=== PATIENT | female | born 1970 | race Caucasian/White ===

== ENCOUNTER → 2016-05-21 | Outpatient (CLI) | payer MEDICARE, OTHER ==
[~2016-05-21] MED LIST: ALLE60TA PO; ARIP1TAB11 PO; ARIP1TAB12 PO; BUPR100CR PO; BUPR150CR PO; BUTO10SO NASAL; CYMB60CA PO; DULO1CAP3 PO; FLUT1SPR9 EACH NARE; HYDR25TA5 PO; KETO60IN6 IM; LAMI200T PO; LAMO100 PO; LINA290C PO; MAXA5TAB2 PO; NEXI20CA PO; OXYC1TAB36 PO; OXYM15TA PO; TOPA100T11 PO; WELLTAB39 PO; XANA1TAB2 PO; ZYRT10CA PO; [UNRECOGNIZED DRUG - CODE] PO
[2016-05-21 13:19] LABS: MEAN CELL VOLUME 86.6 FL (80.0-100.0); MEAN CORPUSCULAR HGB CONC 34.6 % (32.0-36.0); PLATELET COUNT 332 TH/MM3 (150-450); RED BLOOD COUNT 4.96 MIL/MM3 (4.00-5.30); REVIEW FLAG FINAL; WHITE BLOOD COUNT 11.6 TH/MM3 (4.0-11.0)
== END ==
LOC: CPRE 12:36
PROVIDERS: ATTEND Specialist
DX: Z01.812 Encounter for preprocedural laboratory examination (principal); J32.9 Chronic sinusitis, unspecified
CPT/HCPCS: 36415; 85027

== ENCOUNTER → 2016-05-23 | Day surgery (SDC) | payer MEDICARE, OTHER ==
--- NOTE | 2016-05-22 18:56 | MH ---
cc: MARSHALL ACOSTA DATE OF ADMISSION: 05/23/2016 ADMITTING DIAGNOSIS: HISTORY AND PHYSICAL The patient is a 45 year-old female with chronic nasal obstruction and chronic sinusitis for septal reconstruction turbinectomy, bilateral endoscopic sinusotomy. PAST MEDICAL HISTORY Unremarkable. PAST SURGICAL HISTORY Unremarkable REVIEW OF SYSTEMS, FAMILY HISTORY AND SOCIAL HISTORY Unremarkable. PHYSICAL EXAMINATION Well-appearing patient, no acute distress noted. HEENT: Exam reveals septal deviation, turbinate hypertrophy, copious clear rhinorrhea. Lungs: Clear. Heart: Regular rate and rhythm. Abdomen: Soft and nontender. Extremities: Without cyanosis, clubbing or edema. Neurologic: Alert, oriented, nonfocal neurologic exam. IMPRESSION: Patient with nasal obstruction and chronic sinusitis, for nasal sinus surgery. Patient instructed on the method of surgery and possible complications, which include anesthetic complications, cardiac difficulty, pulmonary difficulty, stroke, coma or even . Surgical complications include bleeding, infection, risk of injury to orbit including blindness and diplopia, risk of injury to brain including CSF leak, meningitis, brain abscess or even . The patient appeared to agree, accept, and understand the above-mentioned risks and benefits. In addition, no guarantees or warranties regarding outcome were given. Will therefore proceed with surgery. Marshall Acosta MD [facility]/RADHA /5:55 PM /6:52 PM
[~2016-05-23] VITALS: Ht 170.2 cm; Wt 97.8 kg
[~2016-05-23] MED LIST changes: +*morphine SULFATE 8 MG/ML PERIprocedure ONLY ONE; +ACETAMINOPHEN 1000 MG/100 ML VIAL IV ONE; +ACETAMINOPHEN/HYDROcodone 325 MG/7.5 MG TAB PO PRN; -ARIP1TAB11 PO; -BUPR100CR PO; -BUPR150CR PO; +DO NOT ADM ANY ANTICOAGULANT DRUGS XX PRN; -DULO1CAP3 PO; +EPINEPHrine HCL (1:1000) 30 MG/30 ML VIAL ONE; +EPINEPHrine HCL (1:1000) 30 MG/30 ML VIAL OTHER ONE; +INSULIN HUMAN REGULAR 1,000 UNITS/10 ML VIAL SQ PRN; +LACTATED RINGER'S 1000 ML IV SCH; -LAMO100 PO; +LIDOCAINE 1%/EPINEPHrine 1:100,000 SOLN 30 ML VIAL INFIL ONE; +LIDOCAINE 1%/EPINEPHrine 1:100,000 SOLN 30 ML VIAL ONE; +METOPROLOL TARTRATE 25 MG TAB PO PRN; +MIDAZOLAM HCL 2 MG/2 ML VIAL ONE; +MORPHINE SULFATE 4 MG/ML INJ IV PRN; +ONDANSETRON HCL 4 MG/2 ML VIAL IV PUSH ONE; +ONDANSETRON HCL 4 MG/2 ML VIAL IV PUSH PRN; +PROPOFOL 200 MG/20 ML AMP IV ONE; +SODIUM CHLORID 0.9% 500 ML IV SCH; +fentaNYL CITRATE 250 MCG/5 ML AMP ONE
[2016-05-23 07:00] VITALS: BP 118/77; PULSE 83; RESP 18; TEMP 97.4; O2SAT 98
[2016-05-23 12:40] VITALS: BP 116/75; PULSE 87; RESP 18; TEMP 98.7; O2SAT 98
--- NOTE | 2016-05-24 09:00 | MP ---
cc: MARSHALL ACOSTA DATE OF SURGERY 05/23/2016 PREOPERATIVE DIAGNOSIS Nasal obstruction, chronic sinusitis PROCEDURE Open septal reconstruction, left and right endoscopic frontal sinusotomy, left and right endoscopic anterior/posterior ethmoidectomy, left and right endoscopic maxillary antrostomy with removal of tissue, left and right endoscopic sphenoidotomy, left and right inferior turbinectomy, submucous resection. SURGEON Dr. Acosta ESTIMATED BLOOD LOSS Minimal COMPLICATIONS No complication. OPERATION FOLLOWS Prepped and draped in the usual fashion. 1% Xylocaine, 1:100,000 epinephrine injected into the nasal septum, inferior turbinate middle meatus and superior meatus bilaterally. 1:1000 adrenaline soaked pledgets were placed. Under endoscopic visualization, attention was turned to the right middle meatus whereby the balloon Sinuplasty apparatus was placed in the middle meatus. The guide wire threaded into the right frontal sinus confirmed by light and the balloon threaded and dilation occurred 10 atmospheres x2. In a similar fashion, left frontal sinus was entered and a balloon Sinuplasty performed. The natural antrostomy identified and enlarged on the left side with the balloon Sinuplasty apparatus on the right side under endoscopic visualization and then the sphenoid recess was opened on right side as well. At this point, the microdebrider was used to remove the uncinate process. The frontal sinus recess dissection performed with microdebrider under endoscopic visualization. The natural antrostomy identified already enlarged with the balloon, enlarged further and minimal polypoid tissue removed from it on the right side. Anterior/posterior ethmoidectomy performed with microdebrider. In a similar fashion on the opposite side, anterior/posterior ethmoidectomy performed. Frontal sinus recess dissection, as well as natural antrostomy enlarged and polypoid tissue removed. Sphenoid recess was further enlarged bilaterally with microdebrider under endoscopic visualization. Mucoperichondrial incision made. Left side mucoperichondrial flap elevated. A significant amount of bone and cartilage removed to improve nasal airway. Mucoperichondrial flap reapproximated. Once this was achieved, attention turned to removing bone and cartilage improving nasal airway and reducing nasal fracture. A portion of the inferior turbinate removed submucosally with the Coblator probe. Multiple insertions made under direct and endoscopic visualization significantly reducing the submucosal bulk of the inferior turbinate bilaterally. An intercartilaginous incision was then made on the right side and a retrograde dissection of the lower lateral cartilage and the upper lateral cartilage both removed to some degree to improve the dome on the right side. In a similar fashion, this was performed on the left side with an intercartilaginous incision, resection of lower lateral and upper lateral cartilage performed, the nose with suction, the nose was taped. The patient tolerated procedure well. MD PETER Corbett/NINA /9:27 AM /8:43 AM
== END | disposition home or self-care (01) ==
LOC: HSDC 06:19
PROVIDERS: ATTEND Specialist
DX: J32.9 Chronic sinusitis, unspecified (principal); J34.2 Deviated nasal septum; J34.3 Hypertrophy of nasal turbinates
CPT/HCPCS: 00160; 30140; 30520; 31255; 31267; 31276; 31287; J0131; J0171; J2250; J2270; J2405; J3010; J7120

== ENCOUNTER 2016-11-03 13:20 | Emergency (ER) | payer MEDICARE, OTHER ==
[~2016-11-03] VITALS: Ht 171.4 cm; Wt 94.0 kg
[~2016-11-03 13:20] MED LIST changes: -*morphine SULFATE 8 MG/ML PERIprocedure ONLY ONE; -ACETAMINOPHEN 1000 MG/100 ML VIAL IV ONE; -ACETAMINOPHEN/HYDROcodone 325 MG/7.5 MG TAB PO PRN; -DO NOT ADM ANY ANTICOAGULANT DRUGS XX PRN; -EPINEPHrine HCL (1:1000) 30 MG/30 ML VIAL ONE; -EPINEPHrine HCL (1:1000) 30 MG/30 ML VIAL OTHER ONE; -INSULIN HUMAN REGULAR 1,000 UNITS/10 ML VIAL SQ PRN; -LACTATED RINGER'S 1000 ML IV SCH; -LIDOCAINE 1%/EPINEPHrine 1:100,000 SOLN 30 ML VIAL INFIL ONE; -LIDOCAINE 1%/EPINEPHrine 1:100,000 SOLN 30 ML VIAL ONE; -METOPROLOL TARTRATE 25 MG TAB PO PRN; -MIDAZOLAM HCL 2 MG/2 ML VIAL ONE; -MORPHINE SULFATE 4 MG/ML INJ IV PRN; -ONDANSETRON HCL 4 MG/2 ML VIAL IV PUSH ONE; -ONDANSETRON HCL 4 MG/2 ML VIAL IV PUSH PRN; -PROPOFOL 200 MG/20 ML AMP IV ONE; -SODIUM CHLORID 0.9% 500 ML IV SCH; -ZYRT10CA PO; -[UNRECOGNIZED DRUG - CODE] PO; -fentaNYL CITRATE 250 MCG/5 ML AMP ONE
[2016-11-03 13:22] VITALS: BP 140/97; PULSE 93; RESP 20; TEMP 97.6; O2SAT 100
[2016-11-03] MEDS ORDERED: SODIUM CHLOR 0.9% 1000 ML INJ 1,000 ML IV SCH (13:54)
--- NOTE | 2016-11-03 13:55 | PD ---
HPI Chief Complaint: Abdominal Pain Time Seen by Provider: 13:55 Travel History International Travel<30 days: No Contact w/Intl Traveler<30days: No Traveled to known affect area: No History of Present Illness HPI 46-year-old female with psychiatric history, chronic back pain, fibromyalgia, IBS, migraines, presents to the emergency department for evaluation of abdominal pain worsening over the last 2-3 weeks. Pain is generalized but primarily right upper quadrant. She cannot think of any exacerbating or alleviating factors. It is constant, sometimes sharp. She has had nausea and dry heaves but no vomiting. Bowel movements have become loose and are yellow in color. 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 Denies any urinary symptoms. Denies any chest pain or tightness. She has no other symptoms to report. PFSH Past Medical History Cancer: No Cardiovascular Problems: Yes Diabetes: No Endocrine: No Genitourinary: No Headaches: Yes Hepatitis: No Hiatal Hernia: No Immune Disorder: Yes (fibromyalgia) Musculoskeletal: Yes (neck and back pain ) Neurologic: Yes (migraines) Psychiatric: Yes Reproductive: No Respiratory: Yes (sleep apnea, ) Migraines: Yes Seizures: No Sickle Cell Disease: No Thyroid Disease: No Past Surgical History Abdominal Surgery: Yes (hernia repair) AICD: No Ear Surgery: Yes (l ear) Gynecologic Surgery: Yes (hysterectomy. tumor removed r ovary, ablation 1999) Hysterectomy: Yes Joint Replacement: No Pacemaker: No Social History Tobacco Use: Yes Substance Use: No Allergies-Medications (Allergen,Severity, Reaction): Coded Allergies: No Known Allergies (Unverified , 11/03/16) Reported Meds & Prescriptions Reported Meds & Active Scripts Active Flonase Allergy Relief Children Nasal [place] (Fluticasone Nasal [place]) 50 Mcg/ Act [place] 2 [place] EACH NARE DAILY 50 mcg/spray Nexium (Esomeprazole DR) 20 Mg Capdr 20 Mg PO DAILY Hydrochlorothiazide 25 Mg Tab 25 Mg PO DAILY Linzess (Linaclotide) 290 Mcg Cap 290 Mcg PO DAILY Topamax (Topiramate) 100 Mg Tab 100 Mg PO Q12HR 14 Days Reported Flexeril (Cyclobenzaprine HCl) 10 Mg Tab 10 Mg PO TID PRN Oxymorphone (Oxymorphone HCl) 10 Mg Tab 15 Mg PO BID PRN Wellbutrin Xl 24 HR (Bupropion HCl) 300 Mg Tab 300 Mg PO DAILY Oxycodone-Acetaminophen 10-325 mg Tab 1 Tab PO TID PRN Ketorolac Inj (Ketorolac Tromethamine) 60 Mg/2 Ml Inj 60 Mg IM ONCE Butorphanol Nasal [place] (Butorphanol Tartrate) 10 Mg/Ml Soln 1 [place] NASAL DAILY PRN in one nostril (1 mg). If pain not reliefed in 60-90 minutes, a 1 mg repeat dose may be given. May repeat this in 3-4 hrs if needed. Xanax (Alprazolam) 1 Mg Tab 1 Mg PO QID PRN Cymbalta DR (Duloxetine HCl) 60 Mg Capdr 60 Mg PO BID Lamictal (Lamotrigine) 200 Mg Tab 200 Mg PO DAILY Review of Systems Except as stated in HPI: all other systems reviewed are Neg Physical Exam Narrative GENERAL: Well-nourished female patient, sitting up in bed in no acute distress SKIN: Focused skin assessment warm/dry. HEAD: Atraumatic. Normocephalic. EYES: Pupils equal and round. No scleral icterus. No injection or drainage. ENT: No nasal bleeding or discharge. Mucous membranes pink and moist. NECK: Trachea midline. No JVD. CARDIOVASCULAR: Elevated rate and rhythm. No murmur appreciated. RESPIRATORY: No accessory muscle use. Clear to auscultation. Breath sounds equal bilaterally. GASTROINTESTINAL: Abdomen soft, nondistended. Generalized tenderness to palpation with marked tenderness in the right upper quadrant and epigastric area. Hepatic and splenic margins not palpable. MUSCULOSKELETAL: No obvious deformities. No clubbing. No cyanosis. No edema. NEUROLOGICAL: Awake and alert. No obvious cranial nerve deficits. Motor grossly within normal limits. Normal speech. PSYCHIATRIC: Anxious. Data Data Last Documented VS Vital Signs Date Time Temp Pulse Resp B/P Pulse Ox O2 Delivery O2 Flow Rate FiO2 11/03/16 13:58 100 11/03/16 13:22 97.6 93 20 140/97 Room Air Orders Complete Blood Count With Diff (11/03/16 13:54) Comprehensive Metabolic Panel (11/03/16 13:54) Lipase (11/03/16 13:54) Prothrombin Time / Inr (Pt) (11/03/16 13:54) Act Partial Throm Time (Ptt) (11/03/16 13:54) Urinalysis - C+S If Indicated (11/03/16 13:54) Us Abdomen Gallbladder (11/03/16 ) Iv Access Insert/Monitor (11/03/16 13:54) Ecg Monitoring (11/03/16 13:54) Oximetry (11/03/16 13:54) Sodium Chlor 0.9% 1000 Ml Inj (Ns 1000 M (11/03/16 13:54) Sodium Chloride 0.9% Flush (Ns Flush) (11/03/16 14:00) Electrocardiogram (11/03/16 13:54) Ketorolac Inj (Toradol Inj) (11/03/16 14:00) Ondansetron Inj (Zofran Inj) (11/03/16 14:30) Morphine Inj (Morphine Inj) (11/03/16 14:45) Morphine Inj (Morphine Inj) (11/03/16 16:00) Labs Laboratory Tests Test 11/03/16 11/03/16 14:05 14:25 White Blood Count 11.5 TH/MM3 Red Blood Count 5.02 MIL/MM3 Hemoglobin 14.8 GM/DL Hematocrit 44.7 % Mean Corpuscular Volume 89.1 FL Mean Corpuscular Hemoglobin 29.6 PG Mean Corpuscular Hemoglobin 33.2 % Concent Red Cell Distribution Width 14.3 % Platelet Count 317 TH/MM3 Mean Platelet Volume 8.2 FL Neutrophils (%) (Auto) 79.1 % Lymphocytes (%) (Auto) 12.9 % Monocytes (%) (Auto) 6.2 % Eosinophils (%) (Auto) 1.4 % Basophils (%) (Auto) 0.4 % Neutrophils # (Auto) 9.1 TH/MM3 Lymphocytes # (Auto) 1.5 TH/MM3 Monocytes # (Auto) 0.7 TH/MM3 Eosinophils # (Auto) 0.2 TH/MM3 Basophils # (Auto) 0.0 TH/MM3 CBC Comment DIFF FINAL Differential Comment Prothrombin Time 10.8 SEC Prothromb Time International 1.0 RATIO Ratio Activated Partial 27.6 SEC Thromboplast Time Sodium Level 139 MEQ/L Potassium Level 3.3 MEQ/L Chloride Level 108 MEQ/L Carbon Dioxide Level 21.8 MEQ/L Anion Gap 9 MEQ/L Blood Urea Nitrogen 10 MG/DL Creatinine 1.01 MG/DL Estimat Glomerular Filtration 59 ML/MIN Rate Random Glucose 98 MG/DL Calcium Level 8.7 MG/DL Total Bilirubin 0.4 MG/DL Aspartate Amino Transf 13 U/L (AST/SGOT) Alanine Aminotransferase 24 U/L (ALT/SGPT) Alkaline Phosphatase 89 U/L Total Protein 7.9 GM/DL Albumin 3.6 GM/DL Lipase 78 U/L Urine Color LIGHT-YELLOW Urine Turbidity CLEAR Urine pH 5.0 Urine Specific [place] 1.010 Urine Protein NEG mg/dL Urine Glucose (UA) NEG mg/dL Urine Ketones NEG mg/dL Urine Occult Blood NEG Urine Nitrite NEG Urine Bilirubin NEG Urine Urobilinogen LESS THAN 2.0 MG/DL Urine Leukocyte Esterase NEG Urine WBC LESS THAN 1 /hpf Urine Squamous Epithelial <1 /hpf Cells Urine Mucus FEW /lpf Microscopic Urinalysis Comment CULT NOT INDICATED MDM Medical Decision Making Medical Screen Exam Complete: Yes Emergency Medical Condition: Yes Medical Record Reviewed: Yes Differential Diagnosis biliary colic versus cholecystitis versus cholelithiasis versus pancreatitis versus indigestion versus gastroenteritis versus exacerbation of chronic pain versus adhesions versus obstruction Narrative Course 46 year-old female presents to department for evaluation of abdominal pain. Patient's pain is generalized and more tender in the epigastrium and right upper quadrant. Vital signs are stable. Lab work is without acute concern. Ultrasound of the gallbladder is complete and unremarkable. Patient has been treated for pain. And nausea. She states that this did help improve her symptoms. She is just frustrated due to the ongoing symptoms and "being sick forever." I have encouraged follow-up with her primary care provider and gastroenterology evaluation as well. She is to continue her normal medications. I discussed the patient my attending who is also assessed the patient. Patient was discharged home at this time. Laboratory Tests Test 11/03/16 11/03/16 14:05 14:25 White Blood Count 11.5 TH/MM3 Red Blood Count 5.02 MIL/MM3 Hemoglobin 14.8 GM/DL Hematocrit 44.7 % Mean Corpuscular Volume 89.1 FL Mean Corpuscular Hemoglobin 29.6 PG Mean Corpuscular Hemoglobin 33.2 % Concent Red Cell Distribution Width 14.3 % Platelet Count 317 TH/MM3 Mean Platelet Volume 8.2 FL Neutrophils (%) (Auto) 79.1 % Lymphocytes (%) (Auto) 12.9 % Monocytes (%) (Auto) 6.2 % Eosinophils (%) (Auto) 1.4 % Basophils (%) (Auto) 0.4 % Neutrophils # (Auto) 9.1 TH/MM3 Lymphocytes # (Auto) 1.5 TH/MM3 Monocytes # (Auto) 0.7 TH/MM3 Eosinophils # (Auto) 0.2 TH/MM3 Basophils # (Auto) 0.0 TH/MM3 CBC Comment DIFF FINAL Differential Comment Prothrombin Time 10.8 SEC Prothromb Time International 1.0 RATIO Ratio Activated Partial 27.6 SEC Thromboplast Time Sodium Level 139 MEQ/L Potassium Level 3.3 MEQ/L Chloride Level 108 MEQ/L Carbon Dioxide Level 21.8 MEQ/L Anion Gap 9 MEQ/L Blood Urea Nitrogen 10 MG/DL Creatinine 1.01 MG/DL Estimat Glomerular Filtration 59 ML/MIN Rate Random Glucose 98 MG/DL Calcium Level 8.7 MG/DL Total Bilirubin 0.4 MG/DL Aspartate Amino Transf 13 U/L (AST/SGOT) Alanine Aminotransferase 24 U/L (ALT/SGPT) Alkaline Phosphatase 89 U/L Total Protein 7.9 GM/DL Albumin 3.6 GM/DL Lipase 78 U/L Urine Color LIGHT-YELLOW Urine Turbidity CLEAR Urine pH 5.0 Urine Specific [place] 1.010 Urine Protein NEG mg/dL Urine Glucose (UA) NEG mg/dL Urine Ketones NEG mg/dL Urine Occult Blood NEG Urine Nitrite NEG Urine Bilirubin NEG Urine Urobilinogen LESS THAN 2.0 MG/DL Urine Leukocyte Esterase NEG Urine WBC LESS THAN 1 /hpf Urine Squamous Epithelial <1 /hpf Cells Urine Mucus FEW /lpf Microscopic Urinalysis Comment CULT NOT INDICATED Last Impressions Gall Bladder Ultrasound 11/03/16 0000 Signed Impressions: Service Date/Time: Thursday, November 03, 2016 15:03 - CONCLUSION: No acute disease. Barrie Ochoa MD Diagnosis Primary Impression: Abdominal pain Qualified Code: R10.84 - Generalized abdominal pain Additional Impressions: Joint pain Qualified Code: M25.551 - Pain of both hip joints Chronic nausea Fibromyalgia Back pain Qualified Code: M54.5 - Chronic bilateral low back pain without sciatica Referrals: Skin Care Specialist Primary Care Physician Patient Instructions: Abdominal Pain (ED), Fibromyalgia (ED), General Instructions Additional Instructions: Continue medication as prescribed Elevated primary care provider Gastroenterology evaluation maybe warranted Return immediately with any acute worsening symptoms. Med/Other Pt SpecificInfo: Prescription(s) given Disposition: 01 DISCHARGE HOME Condition: Stable Susie Todd Nov 03, 2016 13:55
[2016-11-03] MEDS ORDERED: OXYMTAB2 PO (13:56)
[2016-11-03] MEDS ORDERED: CYCL1TAB29 PO (13:56)
[2016-11-03 13:58] VITALS: O2SAT 100
[2016-11-03] MEDS ORDERED: SODIUM CHLORIDE 0.9% FLUSH 10 ML FLUSH IV FLUSH PRN (14:00)
[2016-11-03] MEDS ORDERED: KETOROLAC TROMETHAMINE 30 MG/ML (IVP) VIAL IVP ONE (14:00)
[2016-11-03] MEDS ORDERED: ONDANSETRON HCL 4 MG/2 ML VIAL IV PUSH ONE (14:30)
[2016-11-03 14:33] LABS: AUTOMATED NEUTROPHIL # 9.1 TH/MM3 (1.8-7.7); BASOPHIL % 0.4 % (0.0-2.0); EOSINOPHIL # 0.2 TH/MM3 (0-0.4); EOSINOPHIL % 1.4 % (0.0-4.0); HEMATOCRIT 44.7 % (35.0-46.0); HEMO FLAGS DIFF FINAL; LYMPH % 12.9 % (9.0-44.0); LYMPHOCYTE # 1.5 TH/MM3 (1.0-4.8); MEAN CELL VOLUME 89.1 FL (80.0-100.0); MEAN CORPUSCULAR HEMOGLOBIN 29.6 PG (27.0-34.0); MEAN CORPUSCULAR HGB CONC 33.2 % (32.0-36.0); MONO % 6.2 % (0.0-8.0); NEUT % 79.1 % (16.0-70.0); PLATELET COUNT 317 TH/MM3 (150-450); RED BLOOD COUNT 5.02 MIL/MM3 (4.00-5.30); RED CELL DISTRIBUTION WIDTH 14.3 % (11.6-17.2); WHITE BLOOD COUNT 11.5 TH/MM3 (4.0-11.0)
[2016-11-03] MEDS ORDERED: MORPHINE SULFATE 4 MG/ML INJ IV PUSH ONE ×2 (14:45→16:00)
[2016-11-03 14:48] LABS: ALKALINE PHOSPHATASE 89 U/L (45-117); TOTAL BILIRUBIN ADULT 0.4 MG/DL (0.2-1.0)
[2016-11-03 15:02] LABS: APTT (PATIENT) 27.6 SEC (24.3-30.1); PROTHROMBIN TIME - PATIENT 10.8 SEC (9.8-11.6)
[2016-11-03 15:05] LABS: BLOOD, URINE NEG (NEG); COMMENT (UR) CULT NOT INDICATED; CULTURE IF INDICATED CULT NOT INDICATED; GLUCOSE,URINE NEG (NEG); KETONE, URINE NEG (NEG); MUCUS URINE FEW /lpf (OCC); NITRITE,URINE NEG (NEG); SQUAMOUS EPITHELIAL CELL URINE <1 /hpf (0-5); URINE COLOR LIGHT-YELLOW (YELLW/STRAW)
[2016-11-03 15:10] LABS: ALT (GPT) 24 U/L (10-53); ANION GAP 9 MEQ/L (5-15); AST (GOT) 13 U/L (15-37); BICARBONATE 21.8 MEQ/L (21.0-32.0); BLOOD UREA NITROGEN 10 MG/DL (7-18); CHLORIDE 108 MEQ/L (98-107); GLOMERULAR FILTRATION RATE 59 ML/MIN (>89); POTASSIUM 3.3 MEQ/L (3.5-5.1); SODIUM (NA) 139 MEQ/L (136-145)
--- NOTE | 2016-11-03 16:08 | RADRPT ---
EXAM DATE/TIME: 11/03/2016 15:03 [place] COMPARISON: No previous studies available for comparison. INDICATIONS : Right upper quadrant pain. MEDICAL HISTORY : Headache. Migraine. Sleep apnea. Fibromyalgia. SURGICAL HISTORY : Hysterectomy. Ear surgery. Hernia repair. Tumor removal, right ovary. Ablation. Bilateral knee scope. ENCOUNTER: Initial ACUITY: 4-6 days PAIN SCORE: 8/10 LOCATION: Right upper quadrant MEASUREMENTS: LIVER: 15.6 cm length COMMON DUCT: 4 mm RIGHT KIDNEY: 10.3 x 4.9 x 4.5 cm FINDINGS: LIVER: Normal echotexture without focal lesion or ductal dilatation. COMMON DUCT: No intraluminal mass or stone visualized. GALLBLADDER: Contains no stones, demonstrates no wall thickening or pericholecystic fluid. PANCREAS: The visualized portions are within normal limits. RIGHT KIDNEY: No evidence of hydronephrosis, stone, or mass. CONCLUSION: No acute disease. Barrie Ochoa MD on November 03, 2016 at 16:07 Board Certified Radiologist. This report was verified electronically.
--- NOTE | 2016-11-03 16:13 | PD ---
Data Data Last Documented VS Vital Signs Date Time Temp Pulse Resp B/P Pulse Ox O2 Delivery O2 Flow Rate FiO2 11/03/16 13:58 100 11/03/16 13:22 97.6 93 20 140/97 Room Air Orders Complete Blood Count With Diff (11/03/16 13:54) Comprehensive Metabolic Panel (11/03/16 13:54) Lipase (11/03/16 13:54) Prothrombin Time / Inr (Pt) (11/03/16 13:54) Act Partial Throm Time (Ptt) (11/03/16 13:54) Urinalysis - C+S If Indicated (11/03/16 13:54) Us Abdomen Gallbladder (11/03/16 ) Iv Access Insert/Monitor (11/03/16 13:54) Ecg Monitoring (11/03/16 13:54) Oximetry (11/03/16 13:54) Sodium Chlor 0.9% 1000 Ml Inj (Ns 1000 M (11/03/16 13:54) Sodium Chloride 0.9% Flush (Ns Flush) (11/03/16 14:00) Electrocardiogram (11/03/16 13:54) Ketorolac Inj (Toradol Inj) (11/03/16 14:00) Ondansetron Inj (Zofran Inj) (11/03/16 14:30) Morphine Inj (Morphine Inj) (11/03/16 14:45) Morphine Inj (Morphine Inj) (11/03/16 16:00) Labs Laboratory Tests Test 11/03/16 11/03/16 14:05 14:25 White Blood Count 11.5 TH/MM3 Red Blood Count 5.02 MIL/MM3 Hemoglobin 14.8 GM/DL Hematocrit 44.7 % Mean Corpuscular Volume 89.1 FL Mean Corpuscular Hemoglobin 29.6 PG Mean Corpuscular Hemoglobin 33.2 % Concent Red Cell Distribution Width 14.3 % Platelet Count 317 TH/MM3 Mean Platelet Volume 8.2 FL Neutrophils (%) (Auto) 79.1 % Lymphocytes (%) (Auto) 12.9 % Monocytes (%) (Auto) 6.2 % Eosinophils (%) (Auto) 1.4 % Basophils (%) (Auto) 0.4 % Neutrophils # (Auto) 9.1 TH/MM3 Lymphocytes # (Auto) 1.5 TH/MM3 Monocytes # (Auto) 0.7 TH/MM3 Eosinophils # (Auto) 0.2 TH/MM3 Basophils # (Auto) 0.0 TH/MM3 CBC Comment DIFF FINAL Differential Comment Prothrombin Time 10.8 SEC Prothromb Time International 1.0 RATIO Ratio Activated Partial 27.6 SEC Thromboplast Time Sodium Level 139 MEQ/L Potassium Level 3.3 MEQ/L Chloride Level 108 MEQ/L Carbon Dioxide Level 21.8 MEQ/L Anion Gap 9 MEQ/L Blood Urea Nitrogen 10 MG/DL Creatinine 1.01 MG/DL Estimat Glomerular Filtration 59 ML/MIN Rate Random Glucose 98 MG/DL Calcium Level 8.7 MG/DL Total Bilirubin 0.4 MG/DL Aspartate Amino Transf 13 U/L (AST/SGOT) Alanine Aminotransferase 24 U/L (ALT/SGPT) Alkaline Phosphatase 89 U/L Total Protein 7.9 GM/DL Albumin 3.6 GM/DL Lipase 78 U/L Urine Color LIGHT-YELLOW Urine Turbidity CLEAR Urine pH 5.0 Urine Specific [place] 1.010 Urine Protein NEG mg/dL Urine Glucose (UA) NEG mg/dL Urine Ketones NEG mg/dL Urine Occult Blood NEG Urine Nitrite NEG Urine Bilirubin NEG Urine Urobilinogen LESS THAN 2.0 MG/DL Urine Leukocyte Esterase NEG Urine WBC LESS THAN 1 /hpf Urine Squamous Epithelial <1 /hpf Cells Urine Mucus FEW /lpf Microscopic Urinalysis Comment CULT NOT INDICATED MDM Supervised Visit with NAOMY: Yes Narrative Course The history, exam, and medical decision-making in the associated mid-level provider note were completed with my assistance. I reviewed and agree with the findings presented. I attest that I had a [id number] encounter with the patient on the same day, and personally performed and documented my assessment and findings in the medical record. *My assessment and Findings: 46-year-old woman with abdominal pain radiating diffusely to the back and throughout her whole body, concentrated in the right upper quadrant. She looks generally well. She has some abdominal tenderness. It's not impressive. She has history of fibromyalgia complains of pain in her back and ultrasounds unremarkable. Recommend outpatient follow-up. Condition: Stable Edy Cai MD Nov 03, 2016 16:13
[2016-11-03 16:30] VITALS: BP 145/75; PULSE 78; RESP 16; O2SAT 98
--- NOTE | 2016-11-04 16:23 | EKG ---
Date Performed: 11/03/2016 Time Performed: 14:34:14 PTAGE: 46 years EKG: Sinus rhythm NORMAL ECG INTERPRETATION BASED ON A DEFAULT AGE OF 40 YEARS NO PREVIOUS TRACING DOCTOR: Tanvir Guo Interpretating Date/Time 11/04/2016 16:21:00
== END 2016-11-03 17:07 | disposition home or self-care (01) ==
LOC: NEPE 13:20
DX: R10.11 Right upper quadrant pain (principal); M25.551 Pain in right hip; M25.552 Pain in left hip; R11.0 Nausea; M79.7 Fibromyalgia; M54.5 Low back pain; Z72.0 Tobacco use
CPT/HCPCS: 76705; 80053; 81001; 83690; 85025; 85610; 85730; 93005; 96374; 96375; 99285; J1885; J2270; J2405; J7030